=== PATIENT | male | born 1930 | race Caucasian/White ===

== ENCOUNTER 2018-10-21 16:18 | Inpatient (IN) | payer MEDICARE ==
[2018-10-21 19:49] LABS: ABS Basophils 0.1 10^3/ul (0-0.2); ABS Lymphocytes 1.4 10^3/ul (1.0-4.8); ABS Monocytes 0.9 10^3/ul (0-0.8); ABS Neutrophils 8.9 10^3/ul (1.5-7.7); Eosinophil % 0.2 %; Hematocrit 37 % (42-52); Hemoglobin 12.4 g/dL (14.0-18.0); Lymphocyte % 12.3 %; Mean Corpuscular HGB Conc 33 g/dL (31-36); Mean Corpuscular Hemoglobin 29 pg (27-31); Mean Corpuscular Volume 86 fL (80-94); Mean Platelet Volume 7.5 fL (7.4-10.4); Platelet Count 352 10^3/uL (150-450); Red Blood Count 4.36 10^6 /uL (4.18-5.48); Red Cell Distribution Width 15 % (10-15); White Blood Count 11.2 10^3/uL (3.5-10.8)
[2018-10-21 20:05] LABS: Albumin 3.6 g/dL (3.2-5.2); Albumin/Globulin Ratio 0.9 (1-3); BUN/Creatinine Ratio 26.4 (8-20); C Reactive Protein 300.68 mg/L (<8.01); Calcium 9.7 mg/dL (8.6-10.3); EGFR African American 94.9 (>60); EGFR Non-African American 78.4 (>60); Globulin 3.8 g/dL (2-4); Potassium 3.5 mmol/L (3.5-5.0); Total Protein 7.4 g/dL (6.4-8.9)
[2018-10-21] MEDS ORDERED: Vancomycin(*) 1,000 MG in NS 0.9% 250 ML* 250 ML IVPB ONE (20:52)
--- NOTE | 2018-10-21 20:54 | ED ---
Lower Extremity - HPI Summary HPI Summary: Patient complains of left foot pain with erythema to left foot 1.5 weeks, with pain now increasing to the point where patient states he cannot ambulate. X- ray at urgent care 1 week ago negative. Denies trauma, fever, cough, sore throat, CP, SOB, N/V/D, abdominal pain, change in urine, change in BM. - History of Current Complaint Chief Complaint: EDExtremityLower Stated Complaint: CANT WALK PER PT Time Seen by Provider: 10/21/18 18:11 Hx Obtained From: Patient Mechanism Of Injury: Unknown Onset of Pain: Days Onset/Duration: Weeks Severity Initially: Moderate Severity Currently: Moderate Pain Intensity: 5 Pain Scale Used: 0-10 Numeric Timing: Constant Location: Is Discrete @ Character Of Pain: Aching, Throbbing Associated Signs And Symptoms: Positive: Redness Aggravating Factor(s): Standing, Ambulation, Weight Bearing Alleviating Factor(s): Rest Able to Bear Weight: Yes - Allergies/Home Medications Allergies/Adverse Reactions: Allergies Allergy/AdvReac Type Severity Reaction Status Date / Time No Known Allergies Allergy Verified 10/21/18 16:25 Home Medications: Home Medications Furosemide TAB* [Lasix TAB*] 20 mg PO .TWICE WEEKLY 10/21/18 [History Confirmed 10/21/18] Lidocaine/Menthol [Icy Hot 4%-1% Patch] 1 pad TOPICAL QAM 10/21/18 [History Confirmed 10/21/18] Omeprazole CAP (NF) [Prilosec CAP* 20 MG] 20 mg PO DAILY 10/21/18 [History Confirmed 10/21/18] PMH/Surg Hx/FS Hx/Imm Hx Endocrine/Hematology History: Denies: Hx Diabetes, Hx Sickle Cell Disease Cardiovascular History: Reports: Hx Coronary Artery Disease - BYPASS-1993, STENT X 1, Hx Hypertension - ON MEDICATION FOR GI History: Reports: Other GI Disorders - PROBLEMS WITH CONSTIPATION ABOUT 1 MONTH AGO History: Denies: Hx Dialysis Sensory History: Reports: Hx Contacts or Glasses - GLASSES Denies: Hx Deafness, Hx Hearing Aid Opthamlomology History: Reports: Hx Contacts or Glasses - GLASSES EENT History: Denies: Hx Deafness Neurological History: Denies: Hx Developmental Delay Psychiatric History: Denies: Hx Schizophrenia - Surgical History Surgery Procedure, Year, and Place: LENS IMPLANT BOTH EYES-[place]. TONSILLECTOMY A CHILD. BYPASS- 1993 STENT PLACEMENT Hx Anesthesia Reactions: No - Immunization History Date of Tetanus Vaccine: Unk Date of Influenza Vaccine: 02/11 Infectious Disease History: No Infectious Disease History: Denies: Traveled Outside the [place] in Last 30 Days - Family History Known Family History: Negative: Blood Disorder - Social History Alcohol Use: Rare Substance Use Type: Reports: None Smoking Status (MU): Former Smoker Amount Used/How Often: 1 PPD X 20 YEARS Have You Smoked in the Last Year: No Review of Systems Constitutional: Negative Eyes: Negative ENT: Negative Cardiovascular: Negative Respiratory: Negative Gastrointestinal: Negative Genitourinary: Negative Musculoskeletal: Negative Skin: Other Neurological: Negative Psychological: Normal All Other Systems Reviewed And Are Negative: Yes Physical Exam - Summary Physical Exam Summary: Area of erythema to lateral left foot with no apparent wound. Area of erythema to posterior lower calf with no evidence of wound. 1+ pitting edema bilaterally. PMS intact distally on bilateral extremities. No evidence of purulent drainage, ecchymosis, deformity. Triage Information Reviewed: Yes Vital Signs On Initial Exam: Initial Vitals Temp Pulse Resp BP Pulse Ox 98.6 F 90 16 136/82 99 10/21/18 16:21 10/21/18 16:21 10/21/18 16:21 10/21/18 16:21 10/21/18 16:21 Vital Signs Reviewed: Yes Appearance: Positive: Well-Appearing Skin: Positive: Warm Head/Face: Positive: Normal Head/Face Inspection Eyes: Positive: Normal Neck: Positive: Supple Respiratory/Lung Sounds: Positive: Clear to Auscultation Cardiovascular: Positive: Normal Abdomen Description: Positive: Nontender Musculoskeletal: Positive: Normal Neurological: Positive: Normal Psychiatric: Positive: Normal AVPU Assessment: Alert - Byron Coma Scale Best Eye Response: 4 - Spontaneous Best Motor Response: 6 - Obeys Commands Best Verbal Response: 5 - Oriented Coma Scale Total: 15 Diagnostics - Vital Signs Vital Signs Temp Pulse Resp BP Pulse Ox 10/21/18 20:29 96 131/77 99 10/21/18 20:01 97 97 10/21/18 19:59 94 134/74 97 10/21/18 19:29 91 136/71 96 10/21/18 19:01 92 94 10/21/18 18:59 96 129/87 96 10/21/18 18:29 95 142/85 96 10/21/18 18:00 91 83/70 94 10/21/18 17:29 89 137/50 96 10/21/18 16:21 98.6 F 90 16 136/82 99 - Laboratory Lab Results: Lab Results 10/21/18 10/21/18 10/21/18 Range/Units 19:29 19:29 19:29 WBC 11.2 H (3.5-10.8) 10^3/uL RBC 4.36 (4.18-5.48) 10^6 /uL Hgb 12.4 L (14.0-18.0) g/dL Hct 37 L (42-52) % MCV 86 (80-94) fL MCH 29 (27-31) pg MCHC 33 (31-36) g/dL RDW 15 (10-15) % Plt Count 352 (150-450) 10^3/uL MPV 7.5 (7.4-10.4) fL Neut % (Auto) 79.2 % Lymph % (Auto) 12.3 % Coal % (Auto) 7.6 % Eos % (Auto) 0.2 % Baso % (Auto) 0.7 % Absolute Neuts (auto) 8.9 H (1.5-7.7) 10^3/ul Absolute Lymphs (auto) 1.4 (1.0-4.8) 10^3/ul Absolute Monos (auto) 0.9 H (0-0.8) 10^3/ul Absolute Eos (auto) 0.0 (0-0.6) 10^3/ul Absolute Basos (auto) 0.1 (0-0.2) 10^3/ul Absolute Nucleated RBC 0.0 10^3/ul Nucleated RBC % 0.0 Sodium 138 (135-145) mmol/L Potassium 3.5 (3.5-5.0) mmol/L Chloride 97 L (101-111) mmol/L Carbon Dioxide 29 (22-32) mmol/L Anion Gap 12 H (2-11) mmol/L BUN 24 (6-24) mg/dL Creatinine 0.91 (0.67-1.17) mg/dL Est GFR ( Amer) 94.9 (>60) Est GFR (Non-Af Amer) 78.4 (>60) BUN/Creatinine Ratio 26.4 H (8-20) Glucose 103 H (70-100) mg/dL Lactic Acid 1.0 (0.5-2.0) mmol/L Calcium 9.7 (8.6-10.3) mg/dL Total Bilirubin 1.00 (0.2-1.0) mg/dL AST 48 H (13-39) U/L ALT 44 (7-52) U/L Alkaline Phosphatase 94 (34-104) U/L C-Reactive Protein 300.68 H (<8.01) mg/L Total Protein 7.4 (6.4-8.9) g/dL Albumin 3.6 (3.2-5.2) g/dL Globulin 3.8 (2-4) g/dL Albumin/Globulin Ratio 0.9 L (1-3) Result Diagrams: 10/24/18 05:14 10/24/18 05:14 Lab Statement: Any lab studies that have been ordered have been reviewed, and results considered in the medical decision making process. Lower Extremity Course/Dx - Course Course Of Treatment: Patient complains of left foot pain with erythema to left foot 1.5 weeks, with pain now increasing to the point where patient states he cannot ambulate. X-ray at urgent care 1 week ago negative. Denies trauma, fever, cough, sore throat, CP, SOB, N/V/D, abdominal pain, change in urine, change in BM. Physical exam: Area of erythema to lateral left foot with no apparent wound. Area of erythema to posterior lower calf with no evidence of wound. 1+ pitting edema bilaterally. PMS intact distally on bilateral extremities. No evidence of purulent drainage, ecchymosis, deformity. Vital signs within normal limits. WBC 11.2. CRP 300. Labs otherwise unremarkable. Ultrasound negative for DVT. X-ray negative for fracture. CT lower extremity positive for irregular marginated peripherally enhancing fluid collection consistent with abscess centered in the subcutaneous fat dorsal and medial aspect of the midfoot measuring 3.2 x 1.1 x 3 cm with surrounding cellulitis. There is more diffuse edematous changes in the subcutaneous tissues throughout the foot and ankle some of which may be cellulitis and some of which may be passive edema. Patient admitted to the hospitalist. - Diagnoses Provider Diagnoses: Cellulitis Discharge - Sign-Out/Discharge Documenting (check all that apply): Patient Departure Patient Received Moderate/Deep Sedation with Procedure: No - Discharge Plan Condition: Stable Disposition: ADMITTED TO [facility] [place] [facility] Disposition and Condition Condition: STABLE Disposition: Admitted to [facility]
[2018-10-21] MEDS ORDERED: Iohexol 300* (CONTRAST) 10 ML SDV IV ONE (21:47)
[2018-10-21 23:11] LABS: INR 3.11 (0.82-1.09)
[2018-10-21] MEDS ORDERED: Warfarin TAB(*) 2.5 MG PO SCH (23:45)
[2018-10-21] MEDS ORDERED: Al Hydrox/Mg Hydrox/Simet LIQ* 30 ML UDC PO PRN (23:48)
[2018-10-21] MEDS ORDERED: oxyCODONE/Acetamin 5/325 MG* TAB PO PRN (23:48)
[2018-10-21] MEDS ORDERED: Psyllium PAK PO PRN (23:50)
[2018-10-21] MEDS ORDERED: Metoprolol Tartrate TAB* 50 mg PO ONE (23:52)
--- NOTE | 2018-10-22 01:26 | HP ---
CC: Dr. Westfall; Dr. Noble * HISTORY AND PHYSICAL: DATE OF ADMISSION: 10/21/18 PRIMARY CARE PROVIDER: Dr. Westfall. CHIEF COMPLAINT: Left leg pain. HISTORY OF PRESENT ILLNESS: Mr. Guzman is a 88-year-old male with a history of atrial fibrillation, on chronic anticoagulation with Coumadin, who has had problems with left foot pain for the past 1 week. He was sent to the ED for evaluation and he was noted to have left leg cellulitis. He is going to be admitted to the hospital with a diagnosis of cellulitis. The patient stated that he has not been able to ambulate on the left leg for the past 1 week. The patient is a rather poor historian but is alert and oriented. PAST MEDICAL HISTORY: 1. History of coronary artery disease, status post coronary artery bypass grafting in 1993 and 1 stent. 2. Hypertension. 3. Constipation. 4. History of chronic atrial fibrillation, on anticoagulation with Coumadin. MEDICATIONS: Include: 1. Metamucil 1 packet daily p.r.n. 2. Niacin 2000 mg daily. 3. Metoprolol tartrate 50 mg b.i.d. 4. Melatonin 2.5 mg at bedtime p.r.n. 5. Simvastatin 40 mg daily. 6. Benicar hydrochlorothiazide 40/25, 0.5 tablet daily. 7. Aspirin 81 mg daily. 8. Alpha-lipoic acid 300 mg daily. 9. Omeprazole 20 mg daily. 10. Multivitamin 1 tablet daily. 11. Ciclopirox 8% topical to affected area. 12. Lidocaine patch q.a.m. to affected area. 13. Furosemide 20 mg twice a week. 14. Coumadin 1.25 mg on Tuesdays and and 2.5 mg on the remaining days of the week. 15. The patient was started on cephalexin 500 mg 3 times a day. The cephalexin was started on 10/18/18. ALLERGIES: No known drug allergies. FAMILY HISTORY: Reviewed and noncontributory. SOCIAL HISTORY: The patient is a former smoker. He has a history of 20-pack- year smoking but he quit a "long time ago." He denies any drug use. He drinks alcohol very rarely. He lives at [facility]. His surrogate decision maker is his son, Thomas. His phone number is [phone]. REVIEW OF SYSTEMS: Please see history of present illness. Apart from pain, the patient stated that he has not had any fevers. He is not able to tell me if over the past 2 days when he has been using the antibiotic, the area of the left foot has gotten better or worse. He has problems with chronic leg edema, for which he uses Lasix. All the remaining 12 systems reviewed with the patient and were otherwise negative. PHYSICAL EXAMINATION GENERAL: The patient is a pleasant 88-year-old male who is in no acute distress. Alert, awake, and oriented x3. VITAL SIGNS: Blood pressure of 133/64, heart rate of 96 and is irregularly irregular, respiratory rate 24, oxygen saturation 96% on room air, temperature of 98.8. HEENT: Head: Atraumatic, normocephalic. Eyes: Pupils are equal and reactive to light and accommodation. Oropharynx clear. Mucosa moist. NECK: Supple. No JVD. No bruits bilaterally. RESPIRATORY: Clear to auscultation bilaterally. CARDIOVASCULAR: Irregularly irregular rhythm. No murmur. ABDOMEN: Soft, nontender. Bowel sounds present in all 4 quadrants. EXTREMITIES: There is trace bilateral pedal edema. Pulses are +2 bilaterally. There is no clubbing or cyanosis. The left ankle is swollen with lateral dorsum of the left foot area of increased warmth, erythema, and some ecchymosis. There is a tiny bit of blister subcutaneously in the area also of approximately 0.5 cm in diameter filled with serous fluid. There is no loculation noted. That area of cellulitis extending from that mentioned area to overlying the left ankle and left heel creeping up the left heel to the level of approximately 10 cm above the left ankle. No other lesions noted. NEUROLOGIC: Speech is clear. Cranial nerves II through XII grossly intact. Motor strength is 5/5 bilaterally. The patient has very mild impairment in the range of motion of the left foot. DIAGNOSTIC STUDIES/LAB DATA: Laboratory data shows a white blood cell count of 11.2, hemoglobin of 12.4, hematocrit 37, platelets of 352. INR was 3.1. Sodium was 138, potassium 3.5, chloride 97, carbon dioxide 29, BUN 24, creatinine 0.9. Liver function tests unremarkable apart from a small elevation of AST of 48. C-reactive protein of 300. CT of the left lower extremity: Impression: "There is an irregularly marginated peripherally enhancing fluid collection consistent with abscess centered in subcutaneous fat, dorsal and medial aspect of the mid foot measuring 3.2 x 1.3 cm greatest dimension with surrounding cellulitis. There is more diffuse edematous change in the subcutaneous tissue throughout the foot and ankle, some of these may be cellulitis and some of which may be passive edema. No fracture or bony destruction. Moderate degenerative changes most pronounced in the first MTP." Venous Doppler of the left lower extremity shows no DVT. ASSESSMENT AND PLAN: 1. Cellulitis of the left foot with abscess. At this point, I do not believe the patient failed cephalexin treatment per se, but unfortunately his abscess was not identified before, that needs to be drained. At this point, the patient is going to be continued on cephalosporin intravenously during his hospital stay. I will ask General Surgery to see the patient in the morning for draining of the abscess. It may be complicated due to the patient's INR is therapeutic. I will hold patient's Coumadin for the time being due to that. I will not reverse him though since the abscess appears to be very superficial. 2. For the patient's atrial fibrillation, this is rate controlled. We will control on metoprolol and Coumadin is going to be held due to the issues above. 3. History of peripheral leg edema. The patient's Lasix is going to be continued as previously twice a week. 4. For gastroesophageal reflux disease, the patient's omeprazole is going to be continued as previously taken. 5. For DVT prophylaxis, the patient's INR is so far therapeutic. 6. The patient's code status is do not resuscitate and MOLST form was signed with the patient. TIME SPENT: Approximately 62 minutes was spent on the admission of this patient , more than half the time was spent [id number] with the patient during the interview and physical exam. [id number]/[facility] #: [id number] COLIN
[2018-10-22] MEDS: ceFAZolin 1 GM ADVAN(*) 1 GM in NS 0.9% 50 ML* 50 ML IVPB SCH ×3 (01:48→17:24)
[2018-10-22 06:51] LABS: ABS Eosinophils 0.1 10^3/ul (0-0.6); ABS Lymphocytes 1.4 10^3/ul (1.0-4.8); ABS Neutrophils 8.5 10^3/ul (1.5-7.7); Eosinophil % 0.6 %; Hematocrit 36 % (42-52); Hemoglobin 11.9 g/dL (14.0-18.0); Lymphocyte % 12.8 %; Mean Corpuscular HGB Conc 33 g/dL (31-36); Mean Corpuscular Hemoglobin 29 pg (27-31); Mean Corpuscular Volume 85 fL (80-94); Nucleated Red Blood Cells % 0.1; Platelet Count 339 10^3/uL (150-450); Red Blood Count 4.17 10^6 /uL (4.18-5.48); Red Cell Distribution Width 15 % (10-15)
[2018-10-22 06:55] LABS: INR 3.04 (0.82-1.09)
[2018-10-22 08:01] LABS: INR 2.97 (0.82-1.09)
[2018-10-22] MEDS ORDERED: Aspirin EC TAB* 81 MG TAB.EC PO SCH (09:00)
[2018-10-22] MEDS: Atorvastatin* 20 MG TAB PO SCH (09:12)
[2018-10-22] MEDS: Pantoprazole TAB * 40 MG TAB PO SCH (09:12)
[2018-10-22] MEDS: Docusate CAP* 100 MG PO SCH ×2 (09:12→21:25)
[2018-10-22] MEDS: Metoprolol Tartrate TAB* 50 mg PO SCH ×2 (09:13→21:24)
[2018-10-22] MEDS: Niacin ER CAP* 500 MG CAP.ER PO SCH (09:22)
--- NOTE | 2018-10-22 11:53 | PN ---
Progress Note - Progress Note Date of Service: 10/22/18 Note: Brief Note: (full consult and procedure note dictated) 88 yo male w/ one week h/o Left foot pain w/ assoc swelling and redness. Admitted 10/21 and IV ancef initiated. CT shows fluid collection c/w abscess. Consult done; CT reviewed. Procedure: aspiration, followed by I&D after infiltration of 1% plain lidocaine. 1/4" plain packing placed after direct pressure for hemostasis; sterile Pressure dsg applied. Patient tolerated well; C&S submitted.
--- NOTE | 2018-10-22 12:32 | CONS ---
CONSULTATION REPORT: DATE OF CONSULTATION: 10/22/18 ATTENDING ORTHOPEDIC PROVIDER: Dr. Edgar Chaves. PRIMARY CARE PROVIDER: Dr. Westfall. HISTORY OF PRESENT ILLNESS: Mr. Guzman is an 88-year-old male with history of Afib, on Coumadin. He presents to the emergency room due to left foot pain and redness for 1 week. He lives at [facility] and was placed on cephalexin without any obvious improvement in pain or redness over the past week. The patient denies any drainage as well as denies fever, chills. He denies diabetes or neuropathy of his feet. PAST MEDICAL HISTORY: 1. Coronary artery disease. 2. Hypertension. 3. Constipation. 4. AFib. ALLERGIES: No known drug allergies. FAMILY HISTORY: Noncontributory. SOCIAL HISTORY: Lives at [facility]. Former smoker. REVIEW OF SYSTEMS: General: Denies fever, chills, recent illness. Cardiac: + CAD, AFIB. Denies CP. Resp: Denies SOB. ABD: Denies Nausea, vomiting, diarrhea. Musculoskeletal: Positive for left lower extremity redness and swelling. Neuro : Denies any paresthesias or decreased sensation of his feet. Skin: Redness of left foot PHYSICAL EXAM: Vital Signs: Temperature 98.4, pulse rate 92, respiratory rate 18, oxygen saturation 97%, blood pressure 146/58. General: The patient is in no acute distress. HEENT: Normocephalic, atraumatic. Respiratory: Normal effort of breathing. Abdomen: Nondistended. Extremities: Left lower leg and ankle is edematous. There is erythema of the lateral dorsum of the foot ankle lateral ankle. There is a dime sized blister on the lateral dorsum filled with serous fluid. There is no obvious fluctuance. The patient is tender over the area of erythema. Able to flex and extend MTPs and ankle without pain. Neuro: Sensation is intact to light touch throughout lower extremities. Vascular: Capillary refill less than 2 seconds distally. DP pulses 2+ DIAGNOSTIC STUDIES/LAB DATA: White blood cell count 11.0. INR is 2.97. CRP is 300. Lower extremity CT: Fluid collection measuring 2.2 x 1.1 x 3 cm with surrounding cellulitis. ASSESSMENT AND PLAN: Cellulitis of the left foot with abscess. PLAN: General Surgery has also seen this patient, they plan to aspirate the fluid collection and if deemed necessary I and D will be performed. This case has been discussed with Dr. Edgar Chaves who is available if General Surgery has any questions, concerns or if there is need for orthopedic intervention. Please contact Orthopedics with any further concerns or need of orthopedic assistance. ELVIRA BUNCH [id number]/[facility] #: [id number] [facility]
--- NOTE | 2018-10-22 14:20 | PN ---
Subjective Date of Service: 10/22/18 Interval History: Pt is seen post-I&D. He states that he is not having any pain in the LE, but notes he has not ambulated yet. He walks with a walker at baseline and is a resident at [facility]. He denies fever, chills. He notes that he is hungry and has been NPO for surgery today. Objective Active Medications: Acetaminophen (Tylenol Tab*) 650 mg PO Q4H PRN Al Hydrox/Mg Hydrox/Simethicone (Maalox Plus*) 30 ml PO Q6H PRN Atorvastatin Calcium (Lipitor*) 20 mg PO DAILY FRANTZ Docusate Sodium (Colace Cap*) 100 mg PO BID FRANTZ Furosemide (Lasix Tab*) 20 mg PO MoFr FRANTZ Cefazolin Sodium 1 gm/ Sodium (Chloride) 50 mls @ 200 mls/hr IVPB Q8H FRANTZ Melatonin (Melatonin) 3 mg PO BEDTIME PRN Metoprolol Tartrate (Lopressor Tab*) 50 mg PO BID FRANTZ Niacin (Niaspan Er Tab*) 2,000 mg PO DAILY FRANTZ Oxycodone/Acetaminophen (Percocet 5/325 Tab*) 1 tab PO Q4H PRN Pantoprazole Sodium (Protonix Tab*) 40 mg PO DAILY FRANTZ Psyllium Hydrophilic Mucilloid (Metamucil Peter*) 1 pkt PO DAILY PRN Vital Signs: Temp Pulse Resp BP Pulse Ox 98.4 F 93 18 146/58 97 10/22/18 07:41 10/22/18 07:41 10/22/18 07:46 10/22/18 07:41 10/22/18 07:41 Oxygen Devices in Use Now: None Appearance: Pt is sitting up in bed with HOB elevated and L LE elevated on pillow. He is in no acute distress and appears comfortable. Eyes: No Scleral Icterus, PERRLA Ears/Nose/Mouth/Throat: NL Teeth, Lips, Gums, Mucous Membranes Moist Neck: NL Appearance and Movements; NL JVP, Trachea Midline Respiratory: Symmetrical Chest Expansion and Respiratory Effort, Clear to Auscultation Cardiovascular: NL Sounds; No Murmurs; No JVD, RRR Abdominal: NL Sounds; No Tenderness; No Distention, No Hepatosplenomegaly Extremities: No Clubbing, Cyanosis, - - Trace edema LLE; sensation intact, cap refill intact, pretibial pulses intact. CDI dressing in place. Neurological: Alert and Oriented x 3 Result Diagrams: 10/23/18 05:15 10/23/18 05:15 Additional Lab and Data: Lab Results 10/21/18 10/21/18 10/21/18 Range/Units 19:29 19:29 19:29 WBC 11.2 H (3.5-10.8) 10^3/uL RBC 4.36 (4.18-5.48) 10^6 /uL Hgb 12.4 L (14.0-18.0) g/dL Hct 37 L (42-52) % MCV 86 (80-94) fL MCH 29 (27-31) pg MCHC 33 (31-36) g/dL RDW 15 (10-15) % Plt Count 352 (150-450) 10^3/uL MPV 7.5 (7.4-10.4) fL Neut % (Auto) 79.2 % Lymph % (Auto) 12.3 % [place] % (Auto) 7.6 % Eos % (Auto) 0.2 % Baso % (Auto) 0.7 % Absolute Neuts (auto) 8.9 H (1.5-7.7) 10^3/ul Absolute Lymphs (auto) 1.4 (1.0-4.8) 10^3/ul Absolute Monos (auto) 0.9 H (0-0.8) 10^3/ul Absolute Eos (auto) 0.0 (0-0.6) 10^3/ul Absolute Basos (auto) 0.1 (0-0.2) 10^3/ul Absolute Nucleated RBC 0.0 10^3/ul Nucleated RBC % 0.0 Sodium 138 (135-145) mmol/L Potassium 3.5 (3.5-5.0) mmol/L Chloride 97 L (101-111) mmol/L Carbon Dioxide 29 (22-32) mmol/L Anion Gap 12 H (2-11) mmol/L BUN 24 (6-24) mg/dL Creatinine 0.91 (0.67-1.17) mg/dL Est GFR ( Amer) 94.9 (>60) Est GFR (Non-Af Amer) 78.4 (>60) BUN/Creatinine Ratio 26.4 H (8-20) Glucose 103 H (70-100) mg/dL Lactic Acid 1.0 (0.5-2.0) mmol/L Calcium 9.7 (8.6-10.3) mg/dL Total Bilirubin 1.00 (0.2-1.0) mg/dL AST 48 H (13-39) U/L ALT 44 (7-52) U/L Alkaline Phosphatase 94 (34-104) U/L C-Reactive Protein 300.68 H (<8.01) mg/L Total Protein 7.4 (6.4-8.9) g/dL Albumin 3.6 (3.2-5.2) g/dL Globulin 3.8 (2-4) g/dL Albumin/Globulin Ratio 0.9 L (1-3) Microbiology and Other Data: Microbiology 10/22/18 11:41 Gram Stain - Final Foot Left Assess/Plan/Problems-Billing Assessment: 88yom PMHx CAD, AF, HTN, constipation presents with L foot abscess. - Patient Problems (1) Foot abscess, left Comment: -I&D today -Continue ancef -Continue pain management -Surgery co-managing (2) Atrial fibrillation Comment: -Continue metoprolol -Coumadin held for I&D today; INR remains supratherapeutic -Continue to monitor INR qd (3) CAD (coronary artery disease) Comment: -Continue Metoprolol, and statin -ASA on hold (4) HTN (hypertension) Comment: -Well controlled -Continue lasix (5) DVT prophylaxis Comment: -Coumadin on hold d/t supratherapeutic INR, I&D -Continue daily INR until therapeutic and restart Coumadin
[2018-10-22] MEDS: Melatonin 3 MG TAB PO PRN (21:24)
--- NOTE | 2018-10-22 22:51 | CONS ---
CC: Dr. Geovany Westfall * SURGICAL CONSULT AND PROCEDURE NOTE: DATE OF CONSULT: 10/22/18 ATTENDING SURGEON: Dr. Rodger Berry. CHIEF COMPLAINT: Left foot infection, possible abscess. HISTORY OF PRESENT ILLNESS: This is an 88-year-old male, who states that approximately 1 week ago he noted the onset of pain in his left foot. This has been accompanied by swelling and difficulty with ambulation secondary to the pain. He normally ambulates with a rolling seat chair. He denies any antecedent injury to the foot. He has normal sensation. He is not diabetic. He did have a history of smoking remotely, but not for many years (20 pack year history total). He is treated for hypertension. He was placed on oral cephalexin with apparently no significant improvement. He was referred to the ED for further evaluation and possible admission. PAST MEDICAL HISTORY: Includes chronic atrial fibrillation, on anticoagulation , coronary artery disease, hypertension, hyperlipidemia, and chronic constipation. ALLERGIES: None known. FAMILY HISTORY: Noted in his admission history and physical. SOCIAL HISTORY: Noted in his admission history and physical. REVIEW OF SYSTEMS: See H and P. The patient has not had any other prior similar infections in the lower extremities. He has had some callus along the lateral aspect of the left foot, chronically for which he has used moisturizing creams topically. PHYSICAL EXAM: Height 5 feet 11 inches, weight 206 pounds, temperature 98.4, other vital signs are stable. He was mildly tachycardiac at 1 a.m., rate of 114. General: Well-nourished, pleasant male, in no acute distress, lying in bed. Exam is limited to the lower extremities. Both lower extremities are warm and appeared well perfused with good capillary refill of the toes of the left foot and good temperature and sensation to light touch. The left foot and ankle are notably swollen with a couple of small blisters over the dorsum of the ankle. In the lateral aspect of the foot, there is some what appears to be chronic callus without open wound. Over the dorsal aspect of the foot, there is a somewhat violaceous area of discoloration, which is moderately tender to palpitation and with some associated fluctuance. There is generalized tenderness in the foot and ankle, but more mild versus the area on the dorsum of the foot. Feet pulses are difficult to palpate, but are present readily by Doppler, likewise there is similar on the right foot. 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 CT scan which was reviewed personally and with Dr. Berry shows a peripherally enhancing fluid collection in the dorsum of the left foot measuring 3.2 x 1.1 x 3 cm with associated edema and changes consistent with cellulitis. IMPRESSION: Cellulitis of the left foot with possible abscess, though his exam is not overly concerning. PLAN: Case was discussed and reviewed with Dr. Berry, who suggested aspirating the area and if return of fluid to complete a formal I and D. PROCEDURE: After explaining the procedure and obtaining consent, time-out was performed. The skin on the left foot was prepped with Betadine. The area of fluctuance was aspirated with an 18 gauge needle with return of cloudy red fluid. This was submitted for culture. Next, 1% plain lidocaine was infiltrated in a field block around the area of fluctuance, utilizing approximately 5 cc. I and D was performed with a cruciate incision with return of moderate amount of sanguinopurulent drainage. The wound was explored with hemostat and sterile Q-tip for any loculations, which there were none. The wound was then irrigated with saline and a wick of 0.25 inch plain packing was placed. Pressure was held for a few minutes given his anticoagulation (INR of 3 ). A pressure dressing was then placed. The patient tolerated the procedure well. ELVIRA GUTHRIE [id number]/[facility] #: [id number] COLIN
[2018-10-22] MEDS ORDERED: Warfarin TAB(*) 2.5 MG PO SCH (23:50)
[2018-10-23] MEDS: ceFAZolin 1 GM ADVAN(*) 1 GM in NS 0.9% 50 ML* 50 ML IVPB SCH ×3 (01:49→17:06)
[2018-10-23 05:53] LABS: ABS Eosinophils 0.2 10^3/ul (0-0.6); ABS Lymphocytes 2.2 10^3/ul (1.0-4.8); ABS Monocytes 0.8 10^3/ul (0-0.8); ABS Neutrophils 6.6 10^3/ul (1.5-7.7); Eosinophil % 1.8 %; Hematocrit 36 % (42-52); Lymphocyte % 22.5 %; Mean Corpuscular HGB Conc 33 g/dL (31-36); Mean Corpuscular Hemoglobin 28 pg (27-31); Mean Corpuscular Volume 85 fL (80-94); Mean Platelet Volume 7.9 fL (7.4-10.4); Platelet Count 368 10^3/uL (150-450); Red Blood Count 4.27 10^6 /uL (4.18-5.48); Red Cell Distribution Width 15 % (10-15); White Blood Count 9.8 10^3/uL (3.5-10.8)
[2018-10-23 05:59] LABS: INR 2.73 (0.82-1.09)
[2018-10-23 06:12] LABS: BUN/Creatinine Ratio 35.3 (8-20); EGFR African American 83.2 (>60); EGFR Non-African American 68.8 (>60); Potassium 3.3 mmol/L (3.5-5.0)
[2018-10-23] MEDS: Acetaminophen TAB* 325 MG PO PRN ×2 (07:38→21:11)
[2018-10-23] MEDS: Niacin ER CAP* 500 MG CAP.ER PO SCH (09:10)
[2018-10-23] MEDS: Pantoprazole TAB * 40 MG TAB PO SCH (09:11)
[2018-10-23] MEDS: Docusate CAP* 100 MG PO SCH ×2 (09:11→21:11)
[2018-10-23] MEDS: Atorvastatin* 20 MG TAB PO SCH (09:11)
[2018-10-23] MEDS: Metoprolol Tartrate TAB* 50 mg PO SCH ×2 (09:12→21:11)
--- NOTE | 2018-10-23 11:14 | PN ---
<Ade Santillan - Last Filed: 10/23/18 10:56> Progress Note - Progress Note Date of Service: 10/23/18 Note: Subjective: Patient seen with Mike FELIX. Brennan Pickering reports reports having intermittent pain in his left foot with varying intensity and a peak level of 5/ 10. Alleviated with acetaminophen earlier this morning. He reports that the pain did not disrupt his sleep last night. He is able to ambulate to the bathroom with the use of a walker and notes that there is still pain with pressure from walking. He denies any fever, chills, shortness of breath, or chest pain. Objective: Vital Signs 10/22/18 10/22/18 10/22/18 12:21 20:25 21:24 Temperature 97.9 F Pulse Rate 73 Respiratory 18 18 18 Rate Blood Pressure 132/61 (mmHg) O2 Sat by Pulse 97 Oximetry 10/23/18 10/23/18 10/23/18 00:07 05:48 08:00 Temperature 97.2 F Pulse Rate 96 Respiratory 18 20 16 Rate Blood Pressure 116/54 (mmHg) O2 Sat by Pulse 98 Oximetry Wound dressing was removed revealing minimal to moderate serosanguinous drainage since the initial packing. On exam +1 pedal pulses are palpable. There is erythema on the lateral side of the left foot which is decreased from . The erythema has receded from the marking lines drawn on the dorsal surface of the foot prior to admission. The area of erythema is non-tender to palpation on the posterior of the foot and leg, but there is tenderness to palpation directly on the area of the abscess. When probed the abscess cavity is tender and measures approximately 2cm in diameter. Culture results: RUN DATE: 10/23/18 [facility] LAB LIVE PAGE 1 RUN TIME: [address], [place] [address] Specimen Inquiry Name: BRENNAN PICKERING : [address]: Dev Castano MD Acct: [id number] Unit: [id number] AGE: 88 Location: [place] [address] Re10/21/18 SEX: M Status: ADM IN SPEC: [id number] EDWAR: 10/22/18-[address]: Lucian Couch [facility] REQ: [id number] RECD: 10/22/18-1204 STATUS: RES OTHR DR: Geovany Shepard MD _ Dev Castano MD SOURCE: FOOT,LEFT SPDESC: ORDERED: MRSA/SA SSTI, Culture & Stain COMMENTS: Verbal to [id number]/PHARMACY by [id number] at 1428 on 10/22/18. Results read back accurately. Procedure Result Reported Site MRSA/S. aureus SSTI PCR Final 10/22/18- 1428 ML Organism 1 MRSA NEGATIVE Organism 2 S.AUREUS POSITIVE Wound/Misc Gram Stain Final 10/22/18- 1258 ML 1+ Epithelial Cells 4+ Neutrophils 3+ Gram Positive Cocci in Clusters, resembling Staph Wound/Misc Culture PENDING * ML - Main Lab Assessment: left foot abscess status 1 day post I&D, positive for staph aureus, sensitivity pending Plan: Continue wound packing daily and current antibiotic therapy with cefazolin. Wound care could be managed in the outpatient setting if medically cleared. Surgical follow up in 1 week upon discharge. Will continue to follow daily while in house. <Leandro Couch - Last Filed: 10/24/18 08:16> Progress Note - Progress Note Note: Patient was seen and examined with the PA student, Ade Santillan. I agree with her assessment and plan.
--- NOTE | 2018-10-23 15:00 | PN ---
Subjective Date of Service: 10/23/18 Interval History: Patient seen and examined. States he is tired, pain in left foot is controlled, still having some difficulty ambulating on it. Denies fevers or chills, no acute SOB, no chest pain. Objective Active Medications: Acetaminophen (Tylenol Tab*) 650 mg PO Q4H PRN PRN Reason: FEVER/PAIN Last Admin: 10/23/18 07:38 Dose: 650 mg Al Hydrox/Mg Hydrox/Simethicone (Maalox Plus*) 30 ml PO Q6H PRN PRN Reason: INDIGESTION Atorvastatin Calcium (Lipitor*) 20 mg PO DAILY [facility] Last Admin: 10/23/18 09:11 Dose: 20 mg Docusate Sodium (Colace Cap*) 100 mg PO BID [facility] Last Admin: 10/23/18 09:11 Dose: 100 mg Furosemide (Lasix Tab*) 20 mg PO MoFr [facility] Cefazolin Sodium 1 gm/ Sodium (Chloride) 50 mls @ 200 mls/hr IVPB Q8H [facility] Last Admin: 10/23/18 09:12 Dose: 200 mls/hr Melatonin (Melatonin) 3 mg PO BEDTIME PRN PRN Reason: SLEEP Last Admin: 10/22/18 21:24 Dose: 3 mg Metoprolol Tartrate (Lopressor Tab*) 50 mg PO BID [facility] Last Admin: 10/23/18 09:12 Dose: 50 mg Niacin (Niaspan Er Tab*) 2,000 mg PO DAILY [facility] Last Admin: 10/23/18 09:10 Dose: 2,000 mg Oxycodone/Acetaminophen (Percocet 5/325 Tab*) 1 tab PO Q4H PRN PRN Reason: Pain Last Admin: 10/22/18 21:24 Dose: 1 tab Pantoprazole Sodium (Protonix Tab*) 40 mg PO DAILY [facility] Last Admin: 10/23/18 09:11 Dose: 40 mg Pharmacy Profile Note (Coumadin Daily Reminder*) 0 note FOLLOW UP 1700 [facility] Psyllium Hydrophilic Mucilloid (Metamucil Peter*) 1 pkt PO DAILY PRN PRN Reason: CONSTIPATION Vital Signs - 8 hr 10/23/18 10/23/18 10/23/18 07:31 08:00 09:15 Temperature 98.0 F Pulse Rate 89 102 Respiratory 18 16 Rate Blood Pressure 125/59 118/52 (mmHg) O2 Sat by Pulse 97 98 Oximetry 10/23/18 11:39 Temperature 97.5 F Pulse Rate 73 Respiratory 18 Rate Blood Pressure 112/66 (mmHg) O2 Sat by Pulse 97 Oximetry Oxygen Devices in Use Now: None Appearance: alert, NAD Eyes: No Scleral Icterus, PERRLA Ears/Nose/Mouth/Throat: NL Teeth, Lips, Gums Neck: NL Appearance and Movements; NL JVP, Trachea Midline Respiratory: Symmetrical Chest Expansion and Respiratory Effort, Clear to Auscultation Cardiovascular: NL Sounds; No Murmurs; No JVD - irregular Extremities: No Clubbing, Cyanosis, - - edema left foot and toes, +pulse and brisk cap refill, dressing CDI Skin: No Nodules or Sclerosis Neurological: Alert and Oriented x 3, NL Sensation Nutrition: Taking PO's Result Diagrams: 10/23/18 05:15 10/23/18 05:15 Additional Lab and Data: Microbiology and Other Data: Microbiology 10/22/18 11:41 Gram Stain - Final Foot Left Diagnostic Imaging: Patient Name: FILIPPO PICKERING Medical Record#: [id number] Ordering Physician: Filippo FELIX Acct.#: [id number] : 1930 Age: 88 Sex: M Location: EMERGENCY DEPARTMENT Exam Date: 10/21/182142 ADM Status: REG ER Order Information: CT EXTREMITY LOWER LEFT W Accession Number: [id number] CPT: Q9967 EXAM: CT Left Lower Extremity With Contrast EXAM DATE/TIME: 10/21/2018 10:14 PM CLINICAL HISTORY: 88 years old, male; Pain; Ankle and foot; Left; Additional info: Ankle and foot redness and swelling TECHNIQUE: Imaging protocol: CT of the Left lower extremity with intravenous contrast was performed. Coronal and sagittal reformatted images were created and reviewed. Radiation optimization: All CT scans at this facility use at least one of these dose optimization techniques: automated exposure control; mA and/or kV adjustment per patient size (includes targeted exams where dose is matched to clinical indication); or iterative reconstruction. Contrast material: OMNIPAQUE 300; Contrast volume: 100 ml; Contrast route: IV; COMPARISON: DX KURT L FOOT LEFT 3+ VWS 10/21/2018 6:21 PM FINDINGS: Bones/joints: No fracture or bony destruction. Moderate degenerative changes most pronounced at the first MTP. Soft tissues: There is an irregularly marginated peripherally enhancing fluid collection consistent with abscess centered in the subcutaneous fat dorsal and medial aspect of the midfoot measuring 3.2 x 1.1 x 3 cm greatest dimension cyst with surrounding cellulitis. There is more diffuse edematous change in the subcutaneous tissues throughout the foot and ankle some of which may be cellulitis and some of which may be passive edema. IMPRESSION: 1. There is an irregularly marginated peripherally enhancing fluid collection consistent with abscess centered in the subcutaneous fat dorsal and medial aspect of the midfoot measuring 3.2 x 1.1 x 3 cm greatest dimension with surrounding cellulitis. 2. There is more diffuse edematous change in the subcutaneous tissues throughout the foot and ankle some of which may be cellulitis and some of which may be passive edema. 3. No fracture or bony destruction. 4. Moderate degenerative changes most pronounced at the first MTP. Assess/Plan/Problems-Billing Assessment: This is an 88 yom with PMHx CAD, AF, HTN, constipation that presents with L foot cellulitis and abscess. - Patient Problems (1) Foot abscess, left Code(s): L02.612 - CUTANEOUS ABSCESS OF LEFT FOOT SNOMED Code(s): 21585823170153522 Comment: - s/p I&D with surgery 10/22/18 with packing, POC as per surgical service - cultures with MSSA - Continue ancef, change to keflex PO for discharge - Pain control PRN - PT eval, gait disturbance 2/2 pain and swelling (2) Atrial fibrillation Code(s): I48.91 - UNSPECIFIED ATRIAL FIBRILLATION SNOMED Code(s): 51096172 Comment: - Continue metoprolol - Coumadin held for I&D yesterday - Restart coumadin 10/23 at 2.5mg at follow INR per pharmacy protocol (3) CAD (coronary artery disease) Code(s): I25.10 - ATHSCL HEART DISEASE OF [place] CORONARY ARTERY W/O ANG PCTRS SNOMED Code(s): 86971926 Comment: - Continue Metoprolol, statin and restart ASA in AM (4) HTN (hypertension) Current Visit: No Status: Acute Code(s): I10 - ESSENTIAL (PRIMARY) HYPERTENSION SNOMED Code(s): 32834732 Comment: - Well controlled on BB and lasix Status and Disposition: Inpatient. Plan to DC to [facility] for wound care and PT when patient can be transitioned to oral antibiotics.
[2018-10-23] MEDS ORDERED: Potassium Chlor TAB* 20 MEQ TAB.ER PO ONE (16:08)
[2018-10-23] MEDS ORDERED: Warfarin TAB(*) 2.5 MG PO ONE (17:00)
[2018-10-23] MEDS: Melatonin 3 MG TAB PO PRN (21:19)
[2018-10-24] MEDS: ceFAZolin 1 GM ADVAN(*) 1 GM in NS 0.9% 50 ML* 50 ML IVPB SCH ×3 (00:59→17:19)
[2018-10-24 06:03] LABS: ABS Eosinophils 0.3 10^3/ul (0-0.6); ABS Lymphocytes 1.8 10^3/ul (1.0-4.8); ABS Monocytes 0.8 10^3/ul (0-0.8); ABS Neutrophils 5.2 10^3/ul (1.5-7.7); Eosinophil % 3.2 %; Hematocrit 36 % (42-52); Hemoglobin 11.6 g/dL (14.0-18.0); Lymphocyte % 22.1 %; Mean Corpuscular HGB Conc 33 g/dL (31-36); Mean Corpuscular Hemoglobin 28 pg (27-31); Mean Corpuscular Volume 86 fL (80-94); Mean Platelet Volume 7.8 fL (7.4-10.4); Nucleated Red Blood Cells % 0.3; Platelet Count 339 10^3/uL (150-450); Red Blood Count 4.16 10^6 /uL (4.18-5.48); Red Cell Distribution Width 15 % (10-15)
[2018-10-24 06:18] LABS: INR 2.77 (0.82-1.09)
[2018-10-24 06:28] LABS: BUN/Creatinine Ratio 38.2 (8-20); Calcium 8.7 mg/dL (8.6-10.3); EGFR African American 132.9 (>60); EGFR Non-African American 109.8 (>60); Potassium 3.5 mmol/L (3.5-5.0)
--- NOTE | 2018-10-24 08:26 | PN ---
Progress Note - Progress Note Date of Service: 10/24/18 SOAP: Subjective: Patient seen with Mike FELIX. Patient reports still having some pain in his left foot, but it is improved for the previous day. He stated he has not been ambulating to the bathroom. No dressing changes were needed since the previous day. Objective: vitals: Vital Signs - 24 hr 10/23/18 10/23/18 10/23/18 09:15 11:39 15:20 Temperature 97.5 F 97.6 F Pulse Rate 102 73 78 Respiratory 18 22 Rate Blood Pressure 118/52 112/66 119/51 (mmHg) O2 Sat by Pulse 98 97 100 Oximetry 10/23/18 10/23/18 10/24/18 19:58 20:04 03:29 Temperature 97.2 F 97.3 F Pulse Rate 109 99 Respiratory 20 19 18 Rate Blood Pressure 129/51 147/89 (mmHg) O2 Sat by Pulse 99 95 Oximetry 10/24/18 07:42 Temperature 98.2 F Pulse Rate 90 Respiratory 19 Rate Blood Pressure 144/74 (mmHg) O2 Sat by Pulse 97 Oximetry Exam: Minimal to moderate sero-sanguineous drainage on dressing. Erythema is decreased from yesterday and has receded from the marked lines made prior to admission. No edema appreciated. Tenderness to palpation directly above the abscess, non-tender otherwise. Culture: RUN DATE: 10/24/18 [facility] LAB LIVE PAGE 1 RUN TIME: [address] [place] [address] Specimen Inquiry Name: BRENNAN PICKERING : [address]: Dev Castano MD Acct: [id number] Unit: [id number] AGE: 88 Location: [place] [address] Re10/21/18 SEX: M Status: ADM IN SPEC: [id number] EDWAR: 10/22/18-[address]: Lucian Couch [facility] REQ: [id number] RECD: 10/22/18-1204 STATUS: RES OTHR DR: Geovany Shepard MD _ Dev Castano MD SOURCE: FOOT,LEFT SPDESC: ORDERED: MRSA/SA SSTI, Culture & Stain COMMENTS: Verbal to [id number]/PHARMACY by [id number] at 1428 on 10/22/18. Results read back accurately. Procedure Result Reported Site MRSA/S. aureus SSTI PCR Final 10/22/18- 1428 ML Organism 1 MRSA NEGATIVE Organism 2 S.AUREUS POSITIVE Wound/Misc Gram Stain Final 10/22/18- 1258 ML 1+ Epithelial Cells 4+ Neutrophils 3+ Gram Positive Cocci in Clusters, resembling Staph Wound/Misc Culture Preliminary 10/23/18- 1354 ML Organism 1 STAPHYLOCOCCUS AUREUS Quantity 2+ Assessment: Status 2 days post I&D for left foot abscess; positive for staph aureus, improving. Plan: Continue packing wound for 2-3 days. Wound care care can be preformed in the outpatient setting. Surgical follow-up as needed. <Ade Santillan - Last Filed: 10/24/18 08:17> - Progress Note SOAP: Subjective: []Patient seen and examined w/ PA student. Wound was repacked w/ 05/03" plain, saline-moistened packing. Tolerated well. Will leave wound care instructions in Discharge Plan. Objective: [] Assessment: [] Plan: [] <Leandro Couch - Last Filed: 10/24/18 08:49>
[2018-10-24] MEDS: Atorvastatin* 20 MG TAB PO SCH (08:52)
[2018-10-24] MEDS: Pantoprazole TAB * 40 MG TAB PO SCH (08:52)
[2018-10-24] MEDS: Aspirin EC TAB* 81 MG TAB.EC PO SCH (08:52)
[2018-10-24] MEDS: Metoprolol Tartrate TAB* 50 mg PO SCH ×2 (08:52→21:31)
[2018-10-24] MEDS: Niacin ER CAP* 500 MG CAP.ER PO SCH (08:52)
[2018-10-24] MEDS: Docusate CAP* 100 MG PO SCH ×2 (08:52→21:31)
[2018-10-24] MEDS ORDERED: Senna TAB PO PRN (11:23)
[2018-10-24] MEDS ORDERED: Magnesium Hydroxide LIQ* 30 ML UDC PO PRN (11:23)
[2018-10-24] MEDS: Acetaminophen TAB* 325 MG PO PRN ×2 (11:37→21:31)
[2018-10-24 11:54] LABS: C Reactive Protein 123.12 mg/L (<8.01)
--- NOTE | 2018-10-24 17:12 | PN ---
Subjective Date of Service: 10/24/18 Interval History: Resting in bed on assessment. Reports pain in left foot is well controlled on current pain medication regime. Denies fever, chills, sob, cp. Reports he ambulated to the bathroom with less difficulty today. Objective Active Medications: Acetaminophen (Tylenol Tab*) 650 mg PO Q4H PRN PRN Reason: FEVER/PAIN Last Admin: 10/24/18 11:37 Dose: 650 mg Al Hydrox/Mg Hydrox/Simethicone (Maalox Plus*) 30 ml PO Q6H PRN PRN Reason: INDIGESTION Aspirin (Aspirin Ec Tab*) 81 mg PO DAILY [facility] Last Admin: 10/24/18 08:52 Dose: 81 mg Atorvastatin Calcium (Lipitor*) 20 mg PO DAILY [facility] Last Admin: 10/24/18 08:52 Dose: 20 mg Docusate Sodium (Colace Cap*) 100 mg PO BID [facility] Last Admin: 10/24/18 08:52 Dose: 100 mg Furosemide (Lasix Tab*) 20 mg PO MoFr [facility] Cefazolin Sodium 1 gm/ Sodium (Chloride) 50 mls @ 200 mls/hr IVPB Q8H [facility] Last Admin: 10/24/18 08:52 Dose: 200 mls/hr Magnesium Hydroxide (Milk Of Magnesia Liq*) 30 ml PO Q6H PRN PRN Reason: CONSTIPATION Melatonin (Melatonin) 3 mg PO BEDTIME PRN PRN Reason: SLEEP Last Admin: 10/23/18 21:19 Dose: 3 mg Metoprolol Tartrate (Lopressor Tab*) 50 mg PO BID [facility] Last Admin: 10/24/18 08:52 Dose: 50 mg Niacin (Niaspan Er Tab*) 2,000 mg PO DAILY [facility] Last Admin: 10/24/18 08:52 Dose: 2,000 mg Oxycodone/Acetaminophen (Percocet 5/325 Tab*) 1 tab PO Q4H PRN PRN Reason: Pain Last Admin: 10/22/18 21:24 Dose: 1 tab Pantoprazole Sodium (Protonix Tab*) 40 mg PO DAILY [facility] Last Admin: 10/24/18 08:52 Dose: 40 mg Pharmacy Profile Note (Coumadin Daily Reminder*) 0 note FOLLOW UP 1700 [facility] Last Admin: 10/24/18 16:52 Dose: 1 note Psyllium Hydrophilic Mucilloid (Metamucil Peter*) 1 pkt PO DAILY PRN PRN Reason: CONSTIPATION Senna (Senokot Tab*) 2 tab PO BEDTIME PRN PRN Reason: CONSTIPATION Vital Signs - 8 hr 10/24/18 10/24/18 11:29 15:07 Temperature 97.9 F 97.7 F Pulse Rate 83 84 Respiratory 21 16 Rate Blood Pressure 129/63 123/59 (mmHg) O2 Sat by Pulse 98 98 Oximetry Oxygen Devices in Use Now: None Appearance: Comfortable, NAD Eyes: No Scleral Icterus Ears/Nose/Mouth/Throat: Clear Oropharnyx, Mucous Membranes Moist Neck: NL Appearance and Movements; NL JVP Respiratory: Symmetrical Chest Expansion and Respiratory Effort, Clear to Auscultation Cardiovascular: NL Sounds; No Murmurs; No JVD, RRR, No Edema Abdominal: NL Sounds; No Tenderness; No Distention Lymphatic: No Cervical Adenopathy Extremities: No Edema, No Clubbing, Cyanosis Skin: - - Dressing to left foot CDI. Redness to left posterior ankle is very slight and has receeded from previously marked line. Neurological: Alert and Oriented x 3 Nutrition: Taking PO's Result Diagrams: 10/24/18 05:14 10/24/18 05:14 Additional Lab and Data: Laboratory Results - last 24 hr 10/24/18 10/24/18 10/24/18 05:14 05:14 05:14 WBC 8.0 RBC 4.16 L Hgb 11.6 L Hct 36 L MCV 86 MCH 28 MCHC 33 RDW 15 Plt Count 339 MPV 7.8 Neut % (Auto) 64.3 Lymph % (Auto) 22.1 Duchesne % (Auto) 9.8 Eos % (Auto) 3.2 Baso % (Auto) 0.6 Absolute Neuts (auto) 5.2 Absolute Lymphs (auto) 1.8 Absolute Monos (auto) 0.8 Absolute Eos (auto) 0.3 Absolute Basos (auto) 0.0 Absolute Nucleated RBC 0.0 Nucleated RBC % 0.3 INR (Anticoag Therapy) 2.77 H Sodium 139 Potassium 3.5 Chloride 103 Carbon Dioxide 27 Anion Gap 9 BUN 26 H Creatinine 0.68 Est GFR ( Amer) 132.9 Est GFR (Non-Af Amer) 109.8 BUN/Creatinine Ratio 38.2 H Glucose 130 H Calcium 8.7 C-Reactive Protein 123.12 H Microbiology and Other Data: Microbiology 10/22/18 11:41 Foot Left Skin and Soft Tissue MRSA/MSSA (PCR - Final Mrsa Negative S.aureus Positive 10/22/18 11:41 Foot Left Gram Stain - Final 10/22/18 11:41 Foot Left Wound Culture - Final Staphylococcus Aureus 10/21/18 21:21 Blood Venous Aerobic Blood Culture - Preliminary No Growth Day 2 10/21/18 21:21 Blood Venous Anaerobic Blood Culture - Preliminary No Growth Day 2 10/21/18 21:27 Blood Venous Aerobic Blood Culture - Preliminary No Growth Day 2 10/21/18 21:27 Blood Venous Anaerobic Blood Culture - Preliminary No Growth Day 2 Diagnostic Imaging: Patient Name: BRENNAN PICKERING Medical Record#: [id number] Ordering Physician: Brennan FELIX Acct.#: [id number] : 1930 Age: 88 Sex: M Location: EMERGENCY DEPARTMENT Exam Date: 10/21/182142 ADM Status: REG ER Order Information: CT EXTREMITY LOWER LEFT W Accession Number: [id number] CPT: Q9967 EXAM: CT Left Lower Extremity With Contrast EXAM DATE/TIME: 10/21/2018 10:14 PM CLINICAL HISTORY: 88 years old, male; Pain; Ankle and foot; Left; Additional info: Ankle and foot redness and swelling TECHNIQUE: Imaging protocol: CT of the Left lower extremity with intravenous contrast was performed. Coronal and sagittal reformatted images were created and reviewed. Radiation optimization: All CT scans at this facility use at least one of these dose optimization techniques: automated exposure control; mA and/or kV adjustment per patient size (includes targeted exams where dose is matched to clinical indication); or iterative reconstruction. Contrast material: OMNIPAQUE 300; Contrast volume: 100 ml; Contrast route: IV; COMPARISON: DX KURT L FOOT LEFT 3+ VWS 10/21/2018 6:21 PM FINDINGS: Bones/joints: No fracture or bony destruction. Moderate degenerative changes most pronounced at the first MTP. Soft tissues: There is an irregularly marginated peripherally enhancing fluid collection consistent with abscess centered in the subcutaneous fat dorsal and medial aspect of the midfoot measuring 3.2 x 1.1 x 3 cm greatest dimension cyst with surrounding cellulitis. There is more diffuse edematous change in the subcutaneous tissues throughout the foot and ankle some of which may be cellulitis and some of which may be passive edema. IMPRESSION: 1. There is an irregularly marginated peripherally enhancing fluid collection consistent with abscess centered in the subcutaneous fat dorsal and medial aspect of the midfoot measuring 3.2 x 1.1 x 3 cm greatest dimension with surrounding cellulitis. 2. There is more diffuse edematous change in the subcutaneous tissues throughout the foot and ankle some of which may be cellulitis and some of which may be passive edema. 3. No fracture or bony destruction. 4. Moderate degenerative changes most pronounced at the first MTP. Assess/Plan/Problems-Billing Assessment: This is an 88 yom with PMHx CAD, AF, HTN, constipation that presents with L foot cellulitis and abscess. - Patient Problems (1) Foot abscess, left Comment: - Per surgery continuing packing wound for 2 to 3 days which can be completed as outpatient. Follow up with surgery as needed - s/p I&D with surgery 10/22/18 with packing - Cultures with MSSA - Continue ancef, change to keflex PO for discharge - Pain control PRN - PT evaluating and recommended ANNA (2) Atrial fibrillation Comment: - Continue metoprolol - Coumadin held for I&D 10/22 - Restarted coumadin 10/23 at 2.5mg at follow INR per pharmacy protocol (3) CAD (coronary artery disease) Comment: - Continue Metoprolol, statin and restart ASA in AM (4) HTN (hypertension) Comment: - Well controlled on BB and lasix Status and Disposition: Inpatient. Plan to DC to [facility] for wound care and PT when patient can be transitioned to oral antibiotics. Attending: Osiris Weber
[2018-10-24] MEDS: Melatonin 3 MG TAB PO PRN (21:31)
[2018-10-25] MEDS: ceFAZolin 1 GM ADVAN(*) 1 GM in NS 0.9% 50 ML* 50 ML IVPB SCH ×2 (01:09→09:14)
[2018-10-25 06:06] LABS: INR 2.8 (0.82-1.09)
[2018-10-25 08:19] VITALS: BP 137/66
[2018-10-25] MEDS ORDERED: Furosemide TAB* 20 MG PO SCH (09:00)
[2018-10-25] MEDS: Pantoprazole TAB * 40 MG TAB PO SCH (09:12)
[2018-10-25] MEDS: Niacin ER CAP* 500 MG CAP.ER PO SCH (09:12)
[2018-10-25] MEDS: Metoprolol Tartrate TAB* 50 mg PO SCH (09:12)
[2018-10-25] MEDS: Docusate CAP* 100 MG PO SCH (09:13)
[2018-10-25] MEDS: Atorvastatin* 20 MG TAB PO SCH (09:13)
[2018-10-25] MEDS: Aspirin EC TAB* 81 MG TAB.EC PO SCH (09:13)
[2018-10-25] MEDS: Acetaminophen TAB* 325 MG PO PRN (09:26)
--- NOTE | 2018-10-25 10:33 | DS ---
CC: Dr. Westfall* DISCHARGE SUMMARY: DATE OF ADMISSION: 10/21/18 DATE OF DISCHARGE: 10/25/18 PRIMARY CARE PROVIDER: Dr. Westfall. ATTENDING PHYSICIAN: Dr. Weber* (dictated by Ronn Huitron NP). PRIMARY DIAGNOSES: 1. Left foot abscess. 2. Atrial fibrillation. 3. Coronary artery disease. 4. Hypertension. CONSULTATIONS WHILE IN THE HOSPITAL: General Surgery; ELVIRA Schwab. PROCEDURES WHILE IN THE HOSPITAL: I and D of left foot abscess. STUDIES WHILE IN THE HOSPITAL: Left foot x-ray: Impression: Soft tissue swelling. 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 Doppler left lower extremity: Impression: No acute findings. No evidence of deep vein thrombosis. Lower extremity CT, left: Impression: There is an irregular marginated peripherally enhancing fluid collection consistent with abscess centered in the subcutaneous fat, dorsal and medial aspect of the mid foot measuring 3.2 x 1.1 x 3 cm in greatest dimension with surrounding cellulitis. There is more diffuse edematous change in the subcutaneous tissues throughout the foot and ankle, some of which may be cellulitis and some of which may be passive edema. No fracture or bony deconstruction. Moderate degenerative changes, most pronounced at the first MTP. DISCHARGE HOME MEDICATIONS: Continued home medications: 1. Psyllium 1 pack p.o. daily p.r.n. 2. Niacin ER tab 2000 mg p.o. daily. 3. Metoprolol tartrate 50 mg p.o. b.i.d. 4. Melatonin 2.5 mg p.o. at bedtime p.r.n. 5. Simvastatin 40 mg p.o. daily. 6. Benicar 40/25 mg 0.5 tab p.o. daily. 7. Aspirin 81 mg p.o. daily. 8. Alpha lipoic acid 300 mg p.o. daily. 9. Omeprazole 20 mg p.o. daily. 10. Centrum Silver 1 tab p.o. daily. 11. Penlac 8% topical at bedtime. 12. Icy Hot lidocaine patch 4%/1% one pad topical q.a.m. 13. Furosemide 20 mg p.o. twice weekly. 14. Coumadin 2.5 mg p.o. Sunday, Sunday, Sunday, Sunday, Sunday. 15. Coumadin 1.25 mg p.o. Sunday, . New home medications: 1. Keflex 500 mg t.i.d. x11 days. 2. Oxycodone/acetaminophen 1 tab p.o. q.4 p.r.n. 3. Tylenol 650 mg p.o. q.4 hours p.r.n. HISTORY OF PRESENT ILLNESS/HOSPITAL COURSE: Mr. Guzman is an 88-year-old male with a past medical history significant for atrial fibrillation, chronic anticoagulation with Coumadin, who presented to the emergency department on with complaints of left leg cellulitis. Please see history and physical dictated by Fadia Shepard MD for complete summary of events leading up to this hospitalization, but in short, the patient was found to have cellulitis and left foot abscess, therefore was admitted for an I and D and intravenous IV antibiotics. While in the emergency room, the patient had a CT of his left lower extremity, which revealed the abscess. Ortho and General Surgery were consulted. General Surgery planned to approach the abscess with an I and D, which was completed during this admission. Also during this admission, the patient had received dressing changes and packing. Initially on admission, the patient had some leukocytosis but no fever. The patient's leukocytosis has greatly improved and now is within normal limits. In addition, it should also be mentioned that the patient had his Coumadin held for upcoming I and D, therefore I would recommend close monitoring of his INR. This morning, the patient had improved. As mentioned above, his WBC is 8.0. He is afebrile. He is not tachycardic. His dressing is clean, dry, and intact. Redness to the left lower extremity near ankle has greatly improved. Redness is only slight today. It is also noted to have receded from previously marked line. The patient reports the pain in his left foot is well controlled with current regimen. During this admission, the patient was also evaluated by Physical Therapy, who recommended subacute rehab given that the patient is having some difficulty ambulating with current abscess. The patient is stable for discharge to [facility] today. REVIEW OF SYSTEMS: The patient reports very slight pain in the left foot. The patient denies fever, chills, sweating, chest pain, nausea, vomiting, shortness of breath, numbness and tingling. A 14-point review of systems was completed and all were negative. PHYSICAL EXAMINATION: Vital signs: Temp 97.8, HR 66, RR 20, O2 saturation 98% on room air, BP 127/ 66. General: Mr. Guzman is an 88-year-old male who is sitting in bed. He appears to be in no acute distress. He appears stated age. HEENT: EOMs intact. Oral mucosa is moist without lesion. Posterior pharynx is clear. Neck: Supple. No lymphadenopathy. Cardiac: S1, S2 present. No murmurs, rubs, or gallops. Regular rate. Respiratory: Lung are clear to auscultation. Good aeration. No wheezes, rhonchi, or rubs. Abdomen: Soft, nontender. Bowel sounds normoactive. Extremities: No edema. No clubbing or cyanosis. Pedal pulses 2+ bilaterally. Musculoskeletal: No pain or deformities. Skin: As mentioned above, the patient has very slight redness to posterior left ankle that has greatly improved from previous assessment. It has also receded from previously marked line. Dressing to the left foot is clean, dry, and intact. Neuro: Neuro exam is grossly intact. No focal deficits or weakness. LABORATORY DATA: WBC 8.0, hemoglobin 11.6, hematocrit 36, platelets 339. INR 2.80. Sodium 139, potassium 3.5, chloride 103, carbon dioxide 27, BUN 26, creatinine 0.68, glucose 130. CRP 123.12. DISCHARGE PLAN/FOLLOWUP: 1. Left foot abscess: The patient is status post I and D with general surgery on 10/22/18 with packing. The patient should continue dressing changes as set forth by General Surgery. General Surgery's instructions include daily packing change to the left foot (1-1/2 inch plain saline moistened), followed by dry cover dressing. Continue packing through 10/26/18, thereafter apply triple antibiotic ointment to wound daily with cover dressing until wound finishes closing (estimated 3 to 5 days). Follow up with their office, [facility], [phone], on a p.r.n. basis. As mentioned above, the patient's cellulitis has greatly improved with I and D and IV Ancef, therefore he will be discharged on p.o. Keflex. It should be mentioned that the patient's wound culture revealed Staphylococcus aureus. It should also be mentioned that the patient's leukocytosis has improved. In addition, his CRP has decreased since admission. The patient should be monitored routinely for improvement and new/ worsening symptoms in regards to this foot. The patient should continue with physical therapy for gait disturbance secondary to pain and swelling. The patient should continue pain control as needed in the form of Tylenol for moderate pain and Percocet for more severe pain. 2. Atrial fibrillation: The patient has been on tele while admitted. The patient has been in atrial fibrillation but rate controlled. The patient should continue his metoprolol and Coumadin. It should be mentioned that his Coumadin was held on 10/22/18 and restarted on 10/23/18 at 2.5 mg. The patient should continue his home dosing but should have a repeat INR daily given he is on antibiotics and that his Coumadin had to be held for 1 day. 3. CAD: The patient should continue his metoprolol, statin, and aspirin. 4. Hypertension: The patient is well controlled. The patient should continue his beta-adelina and Lasix. 5. Followup: The patient should followup with [facility] as needed. The patient should follow up with his primary care in 1 to 2 days. The patient should have regular dressing changes as mentioned above. The patient should have regular reassessment of this foot for monitoring of improvement and/or new/ worsening symptoms. The patient should have repeat INR tomorrow and then per your protocol. 6. Education: The patient was educated on signs and symptoms of new or worsening condition and when to return to the emergency department. The patient stated understanding. This is a summarized report of a complex medical history and hospital stay. For further details, please see the entire medical record. TIME SPENT: Approximately 35 minutes was spent on this discharge, greater than half that time was spent [id number] with the patient, discussing discharge plan and instructions. This plan was discussed with my attending Dr. Weber, who is in agreement with my plan of care. Reviewed by RONN HUITRON NP 10/26/18 @ [id number]/CPS #: [id number] MTDD
== END 2018-10-25 13:57 | DRG 580 ==
LOC: ED 16:18 → MEDTELE 23:48
PROVIDERS: ADMIT Internal Medicine; ATTEND Internal Medicine
PROC: 0J9R0ZZ Drainage of Left Foot Subcutaneous Tissue and Fascia, Open Approach (ICD-10-PCS; principal; 2018-10-22)
DX: L02.612 Cutaneous abscess of left foot (principal); L03.116 Cellulitis of left lower limb; I10 Essential (primary) hypertension; I25.10 Atherosclerotic heart disease of native coronary artery without angina pectoris; Z96.1 Presence of intraocular lens; R40.2362 Coma scale, best motor response, obeys commands, at arrival to emergency department; R40.2142 Coma scale, eyes open, spontaneous, at arrival to emergency department; R40.2252 Coma scale, best verbal response, oriented, at arrival to emergency department; I48.2 Chronic atrial fibrillation; B95.61 Methicillin susceptible Staphylococcus aureus infection as the cause of diseases classified elsewhere; K21.9 Gastro-esophageal reflux disease without esophagitis; E78.5 Hyperlipidemia, unspecified; K59.09 Other constipation; Z95.5 Presence of coronary angioplasty implant and graft; Z87.891 Personal history of nicotine dependence; R79.1 Abnormal coagulation profile; Z79.01 Long term (current) use of anticoagulants; Z79.82 Long term (current) use of aspirin
CPT/HCPCS: 36415; 80048; 80053; 83605; 85025; 85610; 86140; 87040; 87070; 87077; 87186; 87205; 87640; 87641; 99284; A9270-GY; G8978-GP-CL; G8979-GP-CI; G8987-GO-CJ; G8988-GO-CI; J0690; J3370; Q9967